=== PATIENT | female | born 1990 | race Caucasian/White ===

== ENCOUNTER 2016-06-10 08:17 | Emergency (ER) | payer OTHER ==
--- NOTE | ~2016-06-10 | CR63 ---
[facility]. [facility] A Service of [facility] [place] RADIOLOGY TEXT RESULTS PATIENT: ANITA BALLESTEROS LOCATION: SED : 86 UNIT #: [id number] AGE: [address]: Angeles Verma MD SEX: F ORDER DR: [id number] [address] [address] [id number] MR#: [id number] Acc #: [id number] NAME: ANITA BALLESTEROS : 1990 SEX: F STUDY DATE/TIME: 06/10/2016 8:38 UNIT: SED ROOM: STUDY DESCRIPTION: CR Chest 2 View Attending Physician: Angeles Verma M.D. Ordering Physician: Angeles Verma M.D. Primary Care Physician: Elisa Juan M.D. MEDICAL IMAGING REPORT This report is preliminary unless electronic signature is present. EXAM Chest x-ray, 06/10/2016. HISTORY 25-year-old female in the ED complaining of a 2-day history of chest pain and shortness of air. TECHNIQUE PA and lateral upright chest series. FINDINGS The examination is negative. The lungs are expanded and clear. No visible pulmonary infiltrate, pneumothorax, or pleural effusion. Heart size and pulmonary vascularity are normal. IMPRESSION Negative chest. Dictated by... Jaylon Saldivar M.D. THIS IS AN ELECTRONICALLY VERIFIED REPORT Jaylon Saldivar M.D. at 06/10/2016 1:32 PM RGW/sarai TD: 06/10/2016 10:01 JOB #: [id number] MEDICAL IMAGING REPORT Page 1 of 1
--- NOTE | ~2016-06-10 | EKG ---
PATIENT: ANITA BALLESTEROS UNIT #: [id number] Ventricular Rate: 70 BPM Atrial Rate: 70 BPM P-R Interval: 138 ms QRS Duration: 84 ms Q-T Interval: 424 ms QTC Calculation(Bezet): 457 ms P [place]: 64 degrees Calculated R [place]: 56 degrees Calculated T [place]: 39 degrees Diagnosis Line: Normal sinus rhythm Diagnosis Line: Normal ECG Diagnosis Line: No previous ECGs available Diagnosis Line: Confirmed by WILBER JACKSON MD ([id number]) on Diagnosis Line: 06/12/2016 12:03:27 PM INTERPRETING MD: RENETTA RDZ
[~2016-06-10 08:17] MED LIST: MACROBID100 M1 PO; PRENATAL1 TA1
[2016-06-10 08:23] LABS: WHITE BLOOD COUNT 4.9 X10e3 (4.0-10.5)
[2016-06-10 08:26] LABS: POC - CKMB <1.0 ng/mL (0.0-7.9)
[2016-06-10 08:27] LABS: POC - TROPONIN <0.05 ng/mL (<=0.05)
[2016-06-10 08:27] LABS: BASOPHIL% 0.7 % (0-2.5); EOSINOPHIL# 0.2 X10e3 (0-0.7); EOSINOPHIL% 3.4 % (0.0-7.0); HEMATOCRIT 37.2 % (35.0-45.0); HEMOGLOBIN 12.3 gm/dL (12.0-16.0); LYMPHOCYTE# 2.3 X10e3 (1.0-3.5); LYMPHOCYTE% 46.3 % (17.0-45.0); MEAN CELL VOLUME 88.1 FL (83-96); MEAN CORPUSCULAR HEMOGLOBIN 29.2 PG (28-34); MEAN CORPUSCULAR HGB CONC 33.1 g/dL (30-36); MEAN PLATELET VOLUME 8.7 FL (6.5-11.5); MONOCYTE# 0.5 X10e3 (0-1.0); MONOCYTE% 9.4 % (3.0-12.0); NEUTROPHIL% 40.2 % (40-75); PLATELET COUNT 242 X10e3 (140-420); RED BLOOD COUNT 4.23 X10e (3.90-5.30); RED CELL DISTRIBUTION WIDTH 12.8 % (11.0-15.5)
[2016-06-10 08:29] LABS: DIFF IND NO
[2016-06-10 08:42] LABS: ALBUMIN SERUM 4.4 g/dL (3.5-5.0); BILIRUBIN, DIRECT 0.1 mg/dL (0.0-0.2); BILIRUBIN,INDIRECT 0.4 mg/dL (0.0-0.9); BILIRUBIN,TOTAL 0.5 mg/dL (0.2-2.0); BUN/CREATININE RATIO 18.33; CALCIUM SERUM 8.6 mg/dL (8.4-10.2); CREATININE SERUM 0.6 mg/dL (0.6-1.4); GLOM FILT RATE Estimated 124.9 mL/min (>60); POTASSIUM 3.8 mmol/L (3.5-5.1); PROTEIN TOTAL SERUM 7.6 g/dL (6.0-8.3)
== END 2016-06-10 09:30 | disposition home or self-care (01) ==
LOC: SED 08:17
PROVIDERS: Student in an Organized Health Care Education/Training Program
DX: F41.9 Anxiety disorder, unspecified (principal); E87.1 Hypo-osmolality and hyponatremia
CPT/HCPCS: 36415; 71020; 80048; 80076; 82553; 84484; 84703; 85025; 85379; 93005; 99284